=== PATIENT | female | born 1985 | race Caucasian/White ===

== ENCOUNTER 2017-01-20 07:43 | Outpatient (CLI) | payer OTHER ==
[2017-01-20 08:16] LABS: BASOPHILS # (AUTO) 0.2 K/uL (0.00-0.22); BASOPHILS % (AUTO) 1.9 % (0.0-2.0); EOSINOPHILS # (AUTO) 0.3 K/uL (0-0.4); EOSINOPHILS % (AUTO) 2.3 % (0.0-4.0); HEMATOCRIT 42.3 % (36-48); HEMOGLOBIN 13.9 g/dL (12.0-16.0); LYMPHOCYTES # (AUTO) 2.3 K/uL (2.5-16.5); LYMPHOCYTES % (AUTO) 17.9 % (20.5-51.1); MEAN CORPUSCULAR HEMOGLOBIN 28 pg (27-31); MEAN CORPUSCULAR HGB CONC 33 g/dL (33-37); MEAN CORPUSCULAR VOLUME 85 fL (80-94); MONOCYTES # (AUTO) 0.7 K/uL (0.8-1.0); MONOCYTES % (AUTO) 5.5 % (1.7-9.3); NEUTROPHILS # (AUTO) 9.6 K/uL (1.8-7.7); NEUTROPHILS % (AUTO) 72.4 % (42.2-75.2); PLATELET COUNT (AUTO) 213 K/uL (140-450); RED BLOOD CELL COUNT(AUTO) 4.96 MIL/uL (4.20-5.40); RED CELL DISTRIBUTION WIDTH 12.1 % (11.6-13.7); WHITE BLOOD COUNT (AUTO) 13.1 K/uL (4.8-10.8)
[2017-01-20 08:46] LABS: ALBUMIN 3.1 g/dL (3.4-5.0); ANION GAP 11.5 (8-16); CALCIUM 8.9 mg/dL (8.5-10.1); CARBON DIOXIDE 26.6 mmol/L (21-32); CREATININE 0.9 mg/dL (0.6-1.3); POTASSIUM 4.1 mmol/L (3.5-5.1); TOTAL BILIRUBIN 0.2 mg/dL (0.0-1.0); TOTAL PROTEIN, SERUM 7.2 g/dL (6.4-8.2)
== END 2017-01-20 20:56 | disposition home or self-care (01) ==
LOC: MLB 07:43
DX: C56.9 Malignant neoplasm of unspecified ovary (principal)
CPT/HCPCS: 36415; 80053; 85025; 86304

== ENCOUNTER 2017-02-16 11:29 | Outpatient (CLI) | payer OTHER ==
[2017-02-16 11:55] LABS: BASOPHILS # (AUTO) 0.2 K/uL (0.00-0.22); BASOPHILS % (AUTO) 1.6 % (0.0-2.0); EOSINOPHILS # (AUTO) 0.4 K/uL (0-0.4); HEMATOCRIT 40.8 % (36-48); HEMOGLOBIN 13.8 g/dL (12.0-16.0); LYMPHOCYTES # (AUTO) 3.2 K/uL (2.5-16.5); MEAN CORPUSCULAR HEMOGLOBIN 29 pg (27-31); MEAN CORPUSCULAR HGB CONC 34 g/dL (33-37); MEAN CORPUSCULAR VOLUME 85 fL (80-94); MONOCYTES # (AUTO) 0.6 K/uL (0.8-1.0); NEUTROPHILS # (AUTO) 10.4 K/uL (1.8-7.7); NEUTROPHILS % (AUTO) 69.4 % (42.2-75.2); PLATELET COUNT (AUTO) 225 K/uL (140-450); RED BLOOD CELL COUNT(AUTO) 4.82 MIL/uL (4.20-5.40); RED CELL DISTRIBUTION WIDTH 12.5 % (11.6-13.7); WHITE BLOOD COUNT (AUTO) 14.8 K/uL (4.8-10.8)
[2017-02-16 12:00] LABS: BILIRUBIN,URINE NEGATIVE (NEGATIVE); BLOOD, URINE NEGATIVE (NEGATIVE); COLOR,URINE YELLOW (YELLOW); LEUKOCYTE ESTERASE ,URINE NEGATIVE (NEGATIVE); NITRITE, URINE NEGATIVE (NEGATIVE); PROTEIN,URINE NEGATIVE (NEGATIVE); UGLUCOSE NEGATIVE (NEGATIVE); UROBILINOGEN,URINE 0.2 EU/dL (0.2 - 1)
[2017-02-16 12:01] LABS: APPEARANCE,URINE CLEAR (CLEAR)
== END 2017-02-16 20:16 | disposition home or self-care (01) ==
LOC: MLB 11:29
DX: D39.12 Neoplasm of uncertain behavior of left ovary (principal); D39.11 Neoplasm of uncertain behavior of right ovary
CPT/HCPCS: 36415; 81003; 85025

== ENCOUNTER 2017-02-25 08:27 | Outpatient (CLI) | payer OTHER ==
[2017-02-25 09:48] LABS: HEMATOCRIT 40.8 % (36-48); HEMOGLOBIN 13.5 g/dL (12.0-16.0); MEAN CORPUSCULAR HEMOGLOBIN 28 pg (27-31); MEAN CORPUSCULAR HGB CONC 33 g/dL (33-37); MEAN CORPUSCULAR VOLUME 85 fL (80-94); PLATELET COUNT (AUTO) 220 K/uL (140-450); RED BLOOD CELL COUNT(AUTO) 4.79 MIL/uL (4.20-5.40); RED CELL DISTRIBUTION WIDTH 12.7 % (11.6-13.7); WHITE BLOOD COUNT (AUTO) 13.1 K/uL (4.8-10.8)
[2017-02-25 09:58] LABS: EOSINOPHILS % (MANUAL) 1 % (0-4); LYMPHOCYTES % (MANUAL) 25 % (20-46); MONOCYTES % (MANUAL) 2 % (5-12); NEUTROPHILS % (MANUAL) 72 (43-65)
== END 2017-02-25 20:15 | disposition home or self-care (01) ==
LOC: MLB 08:27
DX: D39.12 Neoplasm of uncertain behavior of left ovary (principal); D39.11 Neoplasm of uncertain behavior of right ovary; D72.828 Other elevated white blood cell count
CPT/HCPCS: 36415; 85025

== ENCOUNTER 2017-06-17 08:15 | Outpatient (CLI) | payer OTHER ==
[2017-06-17 08:49] LABS: BASOPHILS # (AUTO) 0.2 K/uL (0.00-0.22); BASOPHILS % (AUTO) 1.9 % (0.0-2.0); EOSINOPHILS # (AUTO) 0.3 K/uL (0-0.4); EOSINOPHILS % (AUTO) 2.3 % (0.0-4.0); HEMATOCRIT 41.8 % (36-48); HEMOGLOBIN 13.9 g/dL (12.0-16.0); LYMPHOCYTES # (AUTO) 2.2 K/uL (2.5-16.5); LYMPHOCYTES % (AUTO) 17.3 % (20.5-51.1); MEAN CORPUSCULAR HEMOGLOBIN 28 pg (27-31); MEAN CORPUSCULAR HGB CONC 33 g/dL (33-37); MEAN CORPUSCULAR VOLUME 84 fL (80-94); MONOCYTES # (AUTO) 0.3 K/uL (0.8-1.0); NEUTROPHILS % (AUTO) 76.5 % (42.2-75.2); PLATELET COUNT (AUTO) 213 K/uL (140-450); RED BLOOD CELL COUNT(AUTO) 4.95 MIL/uL (4.20-5.40); RED CELL DISTRIBUTION WIDTH 12.7 % (11.6-13.7)
[2017-06-17 09:41] LABS: ALBUMIN 3.2 g/dL (3.4-5.0); ANION GAP 14.8 (8-16); CARBON DIOXIDE 22.2 mmol/L (21-32); CREATININE 0.9 mg/dL (0.6-1.3); THYROID STIMULATING HORMONE 2.93 uIU/mL (0.34-3.74); TOTAL BILIRUBIN 0.4 mg/dL (0.0-1.0)
[2017-06-17 11:35] LABS: CHOL/HDL RATIO 2.5 (1-4.5)
== END 2017-06-17 22:49 | disposition home or self-care (01) ==
LOC: MLB 08:15
PROVIDERS: ATTEND Family Medicine
DX: D39.12 Neoplasm of uncertain behavior of left ovary (principal); D39.11 Neoplasm of uncertain behavior of right ovary; D72.828 Other elevated white blood cell count
CPT/HCPCS: 36415; 80053; 82306; 84443; 85025; 86304

== ENCOUNTER 2017-07-09 07:41 | Emergency (ER) | payer OTHER ==
[~2017-07-09] VITALS: Ht 165.1 cm; Wt 92.5 kg
[2017-07-09 07:52] VITALS: BP 135/80
[2017-07-09 09:12] LABS: ANION GAP 13.4 (8-16); CARBON DIOXIDE 22.7 mmol/L (21-32); CREATININE 1.1 mg/dL (0.6-1.3); POTASSIUM 4.1 mmol/L (3.5-5.1); TOTAL BILIRUBIN 0.2 mg/dL (0.0-1.0)
[2017-07-09 09:13] LABS: ALBUMIN 2.9 g/dL (3.4-5.0)
[2017-07-09 09:16] LABS: PROTHROMBIN TIME 9.9 secs (10.8-13.4)
[2017-07-09 09:35] LABS: BASOPHILS # (AUTO) 0.1 K/uL (0.00-0.22); BASOPHILS % (AUTO) 1.2 % (0.0-2.0); EOSINOPHILS # (AUTO) 0.2 K/uL (0-0.4); EOSINOPHILS % (AUTO) 3.2 % (0.0-4.0); HEMATOCRIT 42.5 % (36-48); HEMOGLOBIN 13.9 g/dL (12.0-16.0); LYMPHOCYTES # (AUTO) 0.4 K/uL (2.5-16.5); LYMPHOCYTES % (AUTO) 5.8 % (20.5-51.1); MEAN CORPUSCULAR HEMOGLOBIN 28 pg (27-31); MEAN CORPUSCULAR HGB CONC 33 g/dL (33-37); MEAN CORPUSCULAR VOLUME 85 fL (80-94); MONOCYTES # (AUTO) 0.4 K/uL (0.8-1.0); MONOCYTES % (AUTO) 4.9 % (1.7-9.3); NEUTROPHILS # (AUTO) 6.1 K/uL (1.8-7.7); NEUTROPHILS % (AUTO) 84.9 % (42.2-75.2); PLATELET COUNT (AUTO) 128 K/uL (140-450); RED BLOOD CELL COUNT(AUTO) 5.03 MIL/uL (4.20-5.40); RED CELL DISTRIBUTION WIDTH 13.2 % (11.6-13.7); WHITE BLOOD COUNT (AUTO) 7.2 K/uL (4.8-10.8)
--- NOTE | 2017-07-09 10:07 | NUR ---
PATIENT AMBULATED TO BED #7
--- NOTE | 2017-07-09 10:11 | NUR ---
PATIENT PRESENTS TO ED WITH C/O FEVER X 3 DAYS, RHINORRHEA;AWOKE THIS AM WITH GENERALIZED HIVES AND WITH NECK PAIN;DENIES POUNDING HEADACHES OR COUGH; NODULES R NECK;HAS BEEN TAKING TYLENOL;RX OF SHRUTI;DENIES N/V/D; SKIN IS PINK/WARM/DRY; AAOX4 WITH EVEN AND STEADY GAIT; LUNGS CLEAR BL; HR EVEN AND REGULAR; PT DENIES ANY FEVER, CP, SOB, OR COUGH AT THIS TIME; PATIENT STATES PAIN OF 10/10 AT THIS TIME;PATIENT POSITIONED FOR COMFORT; HOB ELEVATED; BEDRAILS UP X2; BED DOWN. ER MD MADE AWARE OF PT STATUS.
[2017-07-09 11:06] LABS: APPEARANCE,URINE CLEAR (CLEAR); BILIRUBIN,URINE NEGATIVE (NEGATIVE); BLOOD, URINE NEGATIVE (NEGATIVE); COLOR,URINE YELLOW (YELLOW); LEUKOCYTE ESTERASE ,URINE NEGATIVE (NEGATIVE); NITRITE, URINE NEGATIVE (NEGATIVE); UGLUCOSE NEGATIVE (NEGATIVE)
[2017-07-09 11:17] LABS: RBC,URINE 0-5 (RARE) /HPF (0-5); WBC,URINE 0-5 (RARE) /HPF (0-5)
[2017-07-09] MEDS ORDERED: KETOROLAC 30 MG/ML VIAL IVP SCH ×2 (11:44→12:00)
[2017-07-09] MEDS ORDERED: diphenhydrAMINE 50 MG/ML VIAL IVP SCH ×2 (11:44→12:00)
[2017-07-09] MEDS ORDERED: DEXAMETHASONE 4 MG/ML VIAL IVP SCH ×2 (11:44→12:00)
--- NOTE | 2017-07-09 12:03 | NUR ---
CALLED PHARMACY 2 X COULD'NT GET MEDICINE IN THE [place].THEY SAID THEY WILL BRING THE MEDICINE HERE IN ER.
--- NOTE | 2017-07-09 12:07 | NUR ---
PT WENT TO CT SCAN ACCOMPANIED BY TECH.
[2017-07-09 13:29] VITALS: BP 116/66
--- NOTE | 2017-07-09 13:29 | NUR ---
Patient discharged with v/s stable. Written and verbal after care instructions given and explained. Patient alert, oriented and verbalized understanding of instructions. Ambulatory with steady gait. All questions addressed prior to discharge. ID band removed. Patient advised to follow up with PMD. Rx of AUGMENTIN ,NORCO AND MUCINEX given. Patient educated on indication of medication including possible reaction and side effects. Opportunity to ask questions provided and answered.
== END 2017-07-09 13:29 | disposition home or self-care (01) ==
LOC: MED 07:41
DX: J32.4 Chronic pansinusitis (principal)
CPT/HCPCS: 36415; 70486; 80053; 81001; 85025; 85610; 99285; J0696; J1100; J1200; J7060; J1885

== ENCOUNTER 2018-03-03 07:07 | Outpatient (CLI) | payer OTHER ==
[2018-03-03 07:32] LABS: HEMATOCRIT 42.5 % (36-48); HEMOGLOBIN 14.1 g/dL (12.0-16.0); MEAN CORPUSCULAR HEMOGLOBIN 27 pg (27-31); MEAN CORPUSCULAR HGB CONC 33 g/dL (33-37); MEAN CORPUSCULAR VOLUME 82.5 fL (80-94); PLATELET COUNT (AUTO) 173 K/uL (140-450); RED BLOOD CELL COUNT(AUTO) 5.15 MIL/uL (4.20-5.40); RED CELL DISTRIBUTION WIDTH 13.3 % (11.6-13.7); WHITE BLOOD COUNT (AUTO) 10.3 K/uL (4.8-10.8)
[2018-03-03 08:23] LABS: ANION GAP 13.1 (8-16); CARBON DIOXIDE 22.8 mmol/L (21-32); CHOL/HDL RATIO 2.5 (1-4.5); POTASSIUM 3.9 mmol/L (3.5-5.1); THYROID STIMULATING HORMONE 2.54 uIU/mL (0.34-3.74); TOTAL BILIRUBIN 0.3 mg/dL (0.0-1.0)
[2018-03-03 08:49] LABS: EOSINOPHILS % (MANUAL) 3 % (0-4); LYMPHOCYTES % (MANUAL) 20 % (20-46); MONOCYTES % (MANUAL) 4 % (5-12)
== END 2018-03-03 20:56 | disposition home or self-care (01) ==
LOC: MLB 07:07
DX: D72.829 Elevated white blood cell count, unspecified (principal); N83.299 Other ovarian cyst, unspecified side
CPT/HCPCS: 36415; 80053; 82306; 84443; 85025